=== PATIENT | male | born 1950 | race Caucasian/White ===

== ENCOUNTER → 2016-12-23 | Outpatient (CLI) | payer MEDICARE ==
[~2016-12-23] MED LIST: CHLORTHALIDONE25 MG PO; ELIQUIS5 MG PO; FOLIC ACID1 MG PO; K-TAB ER20 MEQ PO; LANOXIN125 MCG PO; LOPRESSOR50 MG PO; MAGNESIUM400 MG PO; METHOTREXATE2.5 MG PO; OMEPRAZOLE40 MG PO; SOTALOL80 MG PO; TYLENOL W/CODEIN1 E2 PO; ZYLOPRIM 100 M100 MG PO
[2016-12-23 11:09] LABS: HEMOGLOBIN 11.4 gm/dl (14.0-17.5); RED BLOOD COUNT 3.98 M/UL (4.20-5.50); WHITE BLOOD COUNT 7.3 K/UL (4.5-11.0)
[2016-12-23 11:36] LABS: BUN/CREATININE RATIO 19 (0-10)
== END ==
LOC: LAB 09:57
PROVIDERS: Nurse Practitioner
DX: M19.90 Unspecified osteoarthritis, unspecified site (principal); M13.0 Polyarthritis, unspecified; M79.7 Fibromyalgia; G89.29 Other chronic pain; R53.83 Other fatigue
CPT/HCPCS: 36415; 80053; 80074; 84550; 85025; 86038; 86039; 86140; 86200; 86225; 86226; 86235; 86431